=== PATIENT | female | born 2000 | race Caucasian/White ===

== ENCOUNTER → 2018-07-04 | Outpatient (CLI) | payer OTHER ==
[~2018-07-04] MED LIST: IOHEXOL 240 MG/ML 50ML VIAL. PO ONE
--- NOTE | 2018-07-04 11:07 | RAD ---
CT ABDOMEN PELVIS WO CONTRAST Indication: MUCOUSY DIARRHEA X 6 WEEKS SINCE DEPO SHOT NO SURGERIES PO CONTRAST ONLY NO PREV Exposure: One or more of the following individualized dose reduction techniques were utilized for this examination: 1. Automated exposure control 2. Adjustment of the mA and/or kV according to patient size 3. Use of iterative reconstruction technique. Comparison: None are available. Contrast: No intravenous contrast given. Oral contrast was given. Evaluation of solid viscera, bowel and vasculature is compromised by the noncontrast technique. Lower thorax: Lung bases are clear. Liver: Unremarkable Spleen: Unremarkable Pancreas: Difficult to define given the lack of much surrounding fat but no definite abnormality. Adrenals: No evidence of mass. Kidneys: No obvious mass. Urinary tracts: No urolithiasis or hydronephrosis. Gallbladder: No calcified stone Aorta: Nonaneurysmal Lymph nodes: No significant enlargement GI tract: No evidence of acute colitis. No evidence of bowel obstruction. Appendix is normal. Reproductive organs:No evidence of mass. Urinary bladder: Unremarkable. Peritoneum: No evidence of pneumoperitoneum. No free fluid. Abdominal wall: Unremarkable Spine: Vertebral body height and alignment are intact. Bones: No destructive process identified. External Soft Tissue: No acute findings. IMPRESSION: No definite acute findings in the abdomen or pelvis. Electronically signed by: Rosendo Velásquez MD (07/04/2018 11:03 AM) [facility]
== END | disposition home or self-care (01) ==
LOC: CT 08:41
PROVIDERS: ATTEND Nurse Practitioner Adult Health
DX: R10.84 Generalized abdominal pain (principal)
CPT/HCPCS: 74176

== ENCOUNTER → 2018-10-31 | Day surgery (SDC) | payer BC, OTHER ==
[~2018-10-31] MED LIST changes: +HYDROmorphone 2 MG/ML VIAL IV PRN; -IOHEXOL 240 MG/ML 50ML VIAL. PO ONE; +IV RINGERS,LACTATED 1000ML 1,000 ML IV SCH; +LIDOCAINE 1% PF 2 ML VIAL. ID PRN; +LIDOCAINE 2% PF 5 ML VIAL. ONE; +MORPHINE SULFATE 2 MG/ML VIAL. IV PRN; +NORG1TAB6 PO; +ONDANSETRON PF 4 MG/2 ML VIAL. IV PRN; +PROCHLORPERAZINE 10 MG/2 ML VIAL. IV PRN; +PROPOFOL 60 ML IV ONE; +fentaNYL PF VIAL 100 MCG/2 ML VIAL IV PRN
[2018-10-31 14:21] VITALS: BP 113/64
--- NOTE | 2018-11-01 14:06 | PATHOLOGY ---
[facility] Accession Number: [id number] . 01 Material submitted: . PART A: duodenum - DUODENUM PART B: colon - RANDOM COLON PART C: rectum - RECT0-SIGMOID COLON BIOPSY. Modifiers: sigmoid . 01 Clinical history: . Pre-OP DX: Diarrhea, melena, GERD Post-OP DX: Rule out celiac . 02 Diagnosis: A. Small bowel, duodenum, biopsy: - No pathologic diagnosis. - Normal villous architecture. . B. Colon, random biopsy: - Fragments of colonic mucosa with no significant histopathologic diagnosis. . C. Colon, rectosigmoid, biopsy: - Acute cryptitis with focal mild glandular architectural distortion (please see comment). . (SKM:mmconor; 11/01/2018) [facility]/11/01/2018 . 02 Comment: The findings in the rectosigmoid colon (C) could be consistent with an acute self-limited colitis. Definitive findings of chronic inflammatory bowel disease are not seen. . (SKM:mmconor; 11/01/2018) . 02 Electronically signed: . Sage Jonas MD, Pathologist NPI- [id number] . 01 Gross description: . A. Received in formalin labeled "Narciso, Monique, duodenum," are multiple segments of welch soft tissue measuring 1.3 x 0.6 x 0.2 cm in aggregate dimensions. The specimen is filtered and entirely submitted in cassette A1. . B. Received in formalin labeled "[place], Monique, random colon," are multiple segments of welch soft tissue measuring 2.2 x 0.4 x 0.1 cm in aggregate dimensions. The specimen is filtered and entirely submitted in cassette B1. . C. Received in formalin labeled "[place], Monique, rectum/sigmoid," are multiple segments of welch soft tissue measuring 1.5 x 0.6 x 0.1 cm in aggregate dimensions. The specimen is filtered and entirely submitted in cassette C1. (TSD; 10/31/2018) TOB/TOB . 02 Pathologist provided ICD-10: K52.9, R19.7, K92.1, K21.9 . 02 CPT . 549721, 426450, [id number] Specimen Comment: A courtesy copy of this report has been sent to Specimen Comment: [phone], . Specimen Comment: Report sent to / DR MOSQUERA Specimen Comment: A duplicate report has been generated due to demographic updates. Performed at: 01 [facility] [address] [facility] [address], [place] [id number] MD Armen Roldan MD Phone: [phone] Performed at: 02 [facility] [address] [place] [id number] MD Woo Marroquin MD Phone: [phone]
== END | disposition home or self-care (01) ==
LOC: SURG 12:06
PROVIDERS: ATTEND Internal Medicine Gastroenterology
DX: K64.0 First degree hemorrhoids (principal); K62.89 Other specified diseases of anus and rectum; K31.89 Other diseases of stomach and duodenum; Z79.899 Other long term (current) drug therapy; J45.909 Unspecified asthma, uncomplicated; D64.9 Anemia, unspecified
CPT/HCPCS: 36415; 43239; 45380; 84702; 88305; J2001; J2704